=== PATIENT | male | born 1995 | race Caucasian/White ===

== ENCOUNTER 2019-02-28 06:43 | Emergency (ER) | payer OTHER ==
[~2019-02-28] VITALS: Ht 180.3 cm; Wt 99.8 kg
[2019-02-28] MEDS ORDERED: IBUP800 PO (08:09)
[2019-02-28] MEDS ORDERED: Norco 5-325 Ta1 EACH PO (08:09)
[2019-02-28] MEDS ORDERED: CRUTCH3 XX (08:10)
== END 2019-02-28 08:34 | disposition home or self-care (01) ==
LOC: ER 06:43
DX: S83.005A Unspecified dislocation of left patella, initial encounter (principal); X58.XXXA Exposure to other specified factors, initial encounter
CPT/HCPCS: 29505; 73562-LT; 99283-25